=== PATIENT | female | born 1985 | race Caucasian/White ===

== ENCOUNTER 2016-11-02 13:59 | Emergency (ER) | payer OTHER ==
--- NOTE | 2016-11-02 15:12 | XRAY Preliminary Report ---
Exam: XR Foot 3 View LT IMPRESSION: No acute bony abnormality. [facility] SITE ID: [id number]
--- NOTE | 2016-11-02 15:15 | XRAY Report ---
EXAM: LEFT FOOT RADIOGRAPHY EXAM DATE: 11/02/2016 02:58 PM. CLINICAL HISTORY: Foot injury from a fall. Pain at top of foot. COMPARISON: None. TECHNIQUE: 3 views. FINDINGS: Bones: Normal. No fractures or bone lesions. Joints: Normal. No subluxations. Soft Tissues: Dorsal soft tissue swelling noted. IMPRESSION: No acute bony abnormality. [facility] Referring Provider Line: [phone] SITE ID: [id number]
--- NOTE | 2016-11-02 17:42 | ED Physician Documentation ---
History of Present Illness - Stated complaint Stated Complaint: LT FT INJURY - Chief complaint Chief Complaint: Ext Problem - Additonal information Additional information: hx from pt running up stairs and foot slipped off edge of step causing her to fall pain and sig swelling to midfoot no other injury Review of Systems : denies: Now EGA (denies) Musculoskeletal: reports: Pain with weight bearing PD PAST MEDICAL HISTORY - Past Medical History Past Medical History: No - Past Surgical History Past Surgical History: No - Present Medications Home Medications: Ambulatory Orders Medication Instructions Recorded Confirmed No Known Home Medications [No 11/02/16 11/02/16 Known Home Medications] - Allergies Allergies/Adverse Reactions: Allergies Allergy/AdvReac Type Severity Reaction Status Date / Time No Known Drug Allergies Allergy Verified 11/02/16 14:07 - Social History Does the pt smoke?: Yes Smoking Status: Current every day smoker Does the pt drink ETOH?: Yes Does the pt have substance abuse?: No PD ED PE NORMAL - Vitals Vital signs reviewed: Yes - Extremities Extremities: Other (L foot marked swelling and TTP to mid foot, mo 1st or 5th MT TTP, pain with any motion, MSV intact) Results - Vitals Vitals: Vital Signs - 24 hr 11/02/16 14:05 Temperature 37.2 C Heart Rate 108 H Respiratory 16 Rate Blood Pressure 124/82 H O2 Saturation 100 Oxygen O2 Source Room air - Rads (name of study) foot Radiology: See rad report (no fx, d/w rad ans slight widening but not definitive lis franc, consider MRI) Departure - Departure Disposition: 01 Home, Self Care Clinical Impression: Foot injury Qualifiers: Encounter type: initial encounter Laterality: left Qualified Code(s): S99.922A - Unspecified injury of left foot, initial encounter Condition: Good Instructions: Lisfranc Joint Injury About Follow-Up: [facility] [Provider Group] Comments: There is no fracture but I am concerned that you may have a significant ligamentous injury / disruption called a Lisfranc injury. This can be difficult to identify on plain films and you may need a MRI to determine if americo have this injury It i very important that you follow up with orthopedics in short order for further evaluation. Please call the clinic number I provided. In the mean time, wear the INOCENTE wrap to decrease the swelling, no weight bearing at all, motrin and tylenol for the pain Forms: Activity restrictions
[2016-11-02] MEDS ORDERED: IBUPROFEN 400 MG TABLET PO STA (17:46)
[2016-11-02] MEDS ORDERED: ACETAMINOPHEN 325 MG TABLET PO STA (17:46)
[2016-11-02] MEDS ORDERED: ACETAMINOPHEN 325 MG TABLET PO ONE (17:54)
[2016-11-02] MEDS ORDERED: IBUPROFEN 400 MG TABLET PO ONE (17:54)
[2016-11-02 17:55] VITALS: BP 113/72
== END 2016-11-02 18:02 | disposition home or self-care (01) ==
LOC: ED 13:59
DX: S99.922A Unspecified injury of left foot, initial encounter (principal); W10.9XXA Fall (on) (from) unspecified stairs and steps, initial encounter; Y93.02 Activity, running; F17.200 Nicotine dependence, unspecified, uncomplicated
CPT/HCPCS: 99283

== ENCOUNTER 2017-01-13 10:45 | Outpatient (CLI) | payer OTHER ==
[2017-01-13 11:10] LABS: BASOPHILS % (AUTO) 0.9 %; EOSINOPHILS # (AUTO) 0.1 10^3/uL (0.0-0.7); EOSINOPHILS % (AUTO) 1.9 %; HCT - HEMATOCRIT 43.5 % (37.0-47.0); HGB - HEMOGLOBIN 14.7 g/dL (12.0-16.0); LYMPHOCYTES # (AUTO) 1.3 10^3/uL (1.5-3.5); LYMPHOCYTES % (AUTO) 25.4 %; MEAN CORPUSCULAR HEMOGLOBIN 28.3 pg (27.0-31.0); MEAN CORPUSCULAR HGB CONC 33.9 g/dL (32.0-36.0); MEAN CORPUSCULAR VOLUME 83.6 fL (81.0-99.0); MEAN PLATELET VOLUME 8.9 fL (7.9-10.8); MONOCYTES # (AUTO) 0.3 10^3/uL (0.0-1.0); MONOCYTES % (AUTO) 5.6 %; NEUTROPHILS # (AUTO) 3.4 10^3/uL (1.5-6.6); NEUTROPHILS % (AUTO) 66.2 %; NUCLEATED RED BLOOD CELLS AUTO 0.1 /100WBC; RED BLOOD COUNT 5.21 10^6/uL (4.20-5.40); RED CELL DISTRIBUTION WIDTH 12.6 % (12.0-15.0); UNCORRECTED WHITE BLOOD COUNT 5.1 x10^3/uL; WHITE BLOOD COUNT 5.1 x10^3/uL (4.8-10.8)
[2017-01-13 11:31] LABS: HEMOGLOBIN A1C 0.57 g/dL
[2017-01-13 11:36] LABS: ALBUMIN/GLOBULIN RATIO 1.6 (1.0-2.2); BILIRUBIN,TOTAL 0.9 mg/dL (0.2-1.0); BUN - BLOOD UREA NITROGEN 11 mg/dL (6-20); CALCIUM 9.4 mg/dL (8.5-10.3); CARBON DIOXIDE - CO2 24 mmol/L (21-32); CHLORIDE 104 mmol/L (101-111); CHOL/HDL RATIO 2.2 (<4.4); CHOLESTEROL 141 mg/dL; CREATININE 0.6 mg/dL (0.4-1.0); GFR - MDRD 115 (>89); GLUCOSE 90 mg/dL (70-100); HDL CHOLESTEROL 65 mg/dL; POTASSIUM 3.7 mmol/L (3.5-5.0); SODIUM 138 mmol/L (135-145); TOTAL PROTEIN 7.5 g/dL (6.7-8.2); TRIGLYCERIDES 51 mg/dL; VLDL CHOLESTEROL 10 mg/dL
== END 2017-01-13 10:46 | disposition home or self-care (01) ==
LOC: LAB 10:45
PROVIDERS: ATTEND Registered Nurse
DX: R10.84 Generalized abdominal pain (principal); Z01.419 Encounter for gynecological examination (general) (routine) without abnormal findings
CPT/HCPCS: 36415; 80053; 80061; 83036; 84443; 85025

== ENCOUNTER 2017-01-21 08:36 | Outpatient (CLI) | payer OTHER ==
--- NOTE | 2017-01-21 10:50 | Ultrasound Report ---
ULTRASOUND ABDOMEN COMPLETE: 01/21/2017 COMPARISON: None. INDICATION: Generalized abdominal pain. TECHNIQUE: Sonographic evaluation of the abdomen is performed. FINDINGS: The liver and spleen appear normal in size, echogenicity, and contour. Portal venous flow is directed toward the liver. There is no ascites. The pancreas appears prominent, which is favored to be due to a paucity of intraabdominal fat. The gallbladder appears normal without wall thickening or adjacent fluid. The common duct measures 4 mm. There are multiple right renal stones that measure up to 1.4 cm. No evidence of urologic obstruction. The left kidney appears normal. Right kidney 12.2 cm. Left kidney 11.2 cm. Spleen 12 cm. IMPRESSION: 1. MULTIPLE NONOBSTRUCTING RIGHT RENAL STONES. 2. PROMINENT APPEARANCE OF THE PANCREAS IS FAVORED TO BE DUE TO A PAUCITY OF INTRAABDOMINAL FAT. JOB #: [id number] EXT JOB #: [id number] [email or web address]
== END 2017-01-21 08:37 | disposition home or self-care (01) ==
LOC: DI 08:36
PROVIDERS: ATTEND Registered Nurse
DX: N20.0 Calculus of kidney (principal)
CPT/HCPCS: 76700

== ENCOUNTER 2017-02-05 09:01 | Outpatient (CLI) | payer OTHER ==
[2017-02-05 09:40] LABS: ALBUMIN/GLOBULIN RATIO 1.6 (1.0-2.2); BILIRUBIN,TOTAL 0.4 mg/dL (0.2-1.0); CALCIUM 9.2 mg/dL (8.5-10.3); CREATININE 0.6 mg/dL (0.4-1.0); POTASSIUM 4.2 mmol/L (3.5-5.0); TOTAL PROTEIN 7.1 g/dL (6.7-8.2)
[2017-02-05 09:45] LABS: BILIRUBIN,URINE NEGATIVE (NEGATIVE)
[2017-02-05 09:55] LABS: WBC,URINE 0-3 /HPF (0-5)
== END 2017-02-05 09:02 | disposition home or self-care (01) ==
LOC: LAB 09:01
PROVIDERS: ATTEND Registered Nurse
DX: N20.0 Calculus of kidney (principal); K86.89 Other specified diseases of pancreas
CPT/HCPCS: 36415; 80053; 81001; 82150; 83690

== ENCOUNTER 2017-02-16 07:56 | Outpatient (CLI) | payer OTHER ==
[~2017-02-16 07:56] MED LIST: GADOBUTROL 7.5 MMOL/7.5 ML VIAL ONE
[2017-02-16] MEDS ORDERED: GADOBUTROL 7.5 MMOL/7.5 ML VIAL IVP ONE (09:30)
[2017-02-16 10:30] LABS: AMYLASE 137 U/L (28-100); LIPASE 26 U/L (22-51)
--- NOTE | 2017-02-16 13:32 | MRI Report ---
EXAM: MR ABDOMEN WITH AND WITHOUT CONTRAST (MR PANCREAS AND MRCP) EXAM DATE: 02/16/2017 09:38 AM. CLINICAL HISTORY: OTHER SPECIFIED DISEASES OF PANCREAS. COMPARISON: None. TECHNIQUE: Multiplanar breath-hold T1, T2, and DWI sequences obtained through the pancreas and abdome n on an MR scanner. Dedicated 2D and 3D MRCP sequences obtained through the biliary and pancreatic du cts. Images obtained before and after administration of 5 mL Gadavist intravenous contrast. Multiphas e postcontrast sequences obtained through the pancreas. FINDINGS: Lung Bases: The lung bases are clear. Liver: The liver has normal size, morphology and signal. No evidence of mass. The intrahepatic ducts appear normal. CBD: The CBD appears normal and measures 4 mm in diameter. Gallbladder: The gallbladder is partially distended and appears normal with no wall thickening or sto ne. Pancreas: The pancreas appears normal with no mass. The pancreatic duct measures 2 mm in diameter and appears normal with no stone or stricture. Spleen: The spleen appears normal. Kidneys and Adrenals: The kidneys appear normal with no mass or hydronephrosis. There are no cysts in the kidneys. The adrenals appear normal. Bowel: The small bowel and colon appear normal with no inflammation or obstruction. Retroperitoneum: The retroperitoneal structures appear normal with no mass or lymphadenopathy. IMPRESSION: Normal MR of the pancreas and abdomen. [facility] Referring Provider Line: [phone] SITE ID: [id number]
== END 2017-02-16 07:57 | disposition home or self-care (01) ==
LOC: DI 07:56
PROVIDERS: ATTEND Registered Nurse
DX: K86.89 Other specified diseases of pancreas (principal); R73.01 Impaired fasting glucose
CPT/HCPCS: 36415; 74183; 82150; 82951; 83690; A9585

== ENCOUNTER 2018-05-05 11:34 | Emergency (ER) | payer OTHER ==
[2018-05-05 11:48] VITALS: BP 113/66
[2018-05-05] MEDS ORDERED: DEXAMETHASONE 10 MG/ML VIAL PO STA (12:14)
--- NOTE | 2018-05-05 12:18 | ED Physician Documentation ---
PD HPI HEENT - Stated complaint Stated Complaint: SORE THROAT - Chief complaint Chief Complaint: Heent - History obtained from History obtained from: Patient - History of Present Illness Timing - onset: Yesterday Timing - duration: Days (2) Timing - details: Gradual onset, Still present Location: Throat Improves: Medication Worsens: Swalllowing Associated symptoms: Congestion, Rhinorrhea, Headache Similar symptoms before: Diagnosis (strep) Recently seen: Not recently seen - Additional information Additional information: 32-year-old female who does not usually gets sick is become sick with congestion and sore throat and she has lost her voice. There are several other people at work have been sick as well. She has not had fever and she has not had cough. Review of Systems Constitutional: denies: Fever Eyes: denies: Decreased vision Ears: denies: Ear pain Nose: reports: Rhinorrhea / runny nose, Congestion Throat: reports: Sore throat Cardiac: denies: Chest pain / pressure, Palpitations Respiratory: denies: Dyspnea, Cough GI: denies: Vomiting PD PAST MEDICAL HISTORY - Past Surgical History Past Surgical History: No - Present Medications Home Medications: Ambulatory Orders Medication Instructions Recorded Confirmed Azithromycin [Zithromax] 250 mg PO DAILY #6 tablet 05/05/18 busPIRone [Buspar] 0 mg 05/05/18 - Allergies Allergies/Adverse Reactions: Allergies Allergy/AdvReac Type Severity Reaction Status Date / Time No Known Drug Allergies Allergy Verified 05/05/18 11:48 - Social History Does the pt smoke?: Yes Smoking Status: Current every day smoker Does the pt drink ETOH?: Yes Does the pt have substance abuse?: No PD ED PE NORMAL - Vitals Vital signs reviewed: Yes (normal) - General General: Alert and oriented X 3, No acute distress, Well developed/nourished - HEENT HEENT: Atraumatic, PERRL, EOMI, Ears normal, Other (There is erythema without exudate to the tonsillar pillars bilaterally ) - Neck Neck: Supple, no meningeal sign, No bony TTP, Other (tender submandibular adenopathy ) - Cardiac Cardiac: RRR, No murmur - Respiratory Respiratory: No respiratory distress, Clear bilaterally - Abdomen Abdomen: Soft, Non tender - Back Back: No CVA TTP, No spinal TTP - Derm Derm: Normal color, Warm and dry, No rash - Extremities Extremities: No deformity, No edema - Neuro Neuro: Alert and oriented X 3, composing room supervisor 2-12 intact, No motor deficit, No sensory deficit, Normal speech Eye Opening: Spontaneous Motor: Obeys Commands Verbal: Oriented GCS Score: 15 - Psych Psych: Normal mood, Normal affect Results - Vitals Vitals: Vital Signs - 24 hr 05/05/18 11:42 Temperature 36.9 C Heart Rate 88 Respiratory 16 Rate Blood Pressure 113/66 O2 Saturation 99 Oxygen O2 Source Room air - Labs Labs: Laboratory Tests 05/05/18 12:10 Group A Strep Rapid Negative PD MEDICAL DECISION MAKING - ED course Complexity details: reviewed results, re-evaluated patient, d/w patient ED course: 32-year-old female with a sore throat has had strep previously with a negative rapid strep that grew out a different strain of strep. She is developed sore throat again. She is administered dexamethasone 10 mg orally. Departure - Departure Disposition: Home, Self Care Clinical Impression: Pharyngitis Qualifiers: Pharyngitis/tonsillitis etiology: unspecified etiology Qualified Code(s): J02.9 - Acute pharyngitis, unspecified Condition: Stable Instructions: ED Strep Pharyngitis Poss Follow-Up: Berry Blue, THIERRY, DIRECTOR FINANCIAL ANALYSIS [Provider Admit Priv/Credential] - Prescriptions: Azithromycin [Zithromax] 250 mg PO DAILY #6 tablet Forms: Activity restrictions
[2018-05-05] MEDS ORDERED: CHERRY SYRUP 10 ML UDC PO ONE (12:31)
== END 2018-05-05 13:00 | disposition home or self-care (01) ==
LOC: ED 11:34
DX: J02.9 Acute pharyngitis, unspecified (principal); F17.200 Nicotine dependence, unspecified, uncomplicated
CPT/HCPCS: 87070; 87430; 99283; A9270

== ENCOUNTER 2018-05-11 11:06 | Emergency (ER) | payer OTHER ==
--- NOTE | 2018-05-11 12:21 | ED Physician Documentation ---
PD HPI URI - Stated complaint Stated Complaint: SORE THROAT - Chief complaint Chief Complaint: Heent - History obtained from History obtained from: Patient - History of Present Illness Timing - onset: How many days ago (7) Timing duration: Days (7) Timing details: Abrupt onset, Still present (improved moderately on zpack and says was the best improved the day or two after ED visit, so may have been the steroid dose.) Associated symptoms: Fever, Sore throat, Swollen nodes, Other (very anxious about not improved yet; last year of CA and she is very nervous about any illness now.). No: Ear pain, Dry cough Contributing factors: No: Sick contact Recently seen: Emergency Dept (6 days ago and Rx Zpack and got dose steroids in ER.) Review of Systems Constitutional: reports: Fever, Myalgias Ears: denies: Ear pain Nose: denies: Congestion Throat: reports: Sore throat Respiratory: denies: Cough GI: denies: Nausea, Vomiting, Diarrhea Skin: denies: Rash PD PAST MEDICAL HISTORY - Past Medical History Past Medical History: Yes Cardiovascular: None Respiratory: None Psych: Anxiety - Past Surgical History Past Surgical History: No - Present Medications Home Medications: Ambulatory Orders Medication Instructions Recorded Confirmed Azithromycin [Zithromax] 250 mg PO DAILY #6 tablet 05/05/18 busPIRone [Buspar] 0 mg 05/05/18 Cephalexin [Keflex] 500 mg PO TID #15 capsule 05/11/18 Dexamethasone [Decadron] 4 mg PO DAILY #5 tablet 05/11/18 diazePAM [Diazepam] 5 mg PO BID PRN #8 tablet 05/11/18 - Allergies Allergies/Adverse Reactions: Allergies Allergy/AdvReac Type Severity Reaction Status Date / Time No Known Drug Allergies Allergy Verified 05/11/18 11:17 - Social History Does the pt smoke?: Yes Smoking Status: Current every day smoker Does the pt drink ETOH?: Yes Does the pt have substance abuse?: No - Immunizations Immunizations are current?: Yes - POLST Patient has POLST: No PD ED PE NORMAL - Vitals Vital signs reviewed: Yes - General General: Alert and oriented X 3, Well developed/nourished - HEENT HEENT: Ears normal. No: Pharynx benign (some redness and swelling of tonsils without exudate. No peritonsillar swelling. Mild anterior tender adenopathy. ) - Neck Neck: Supple, no meningeal sign - Cardiac Cardiac: RRR, No murmur - Respiratory Respiratory: Clear bilaterally - Abdomen Abdomen: Soft, Non tender - Derm Derm: Normal color, Warm and dry Results - Vitals Vitals: Oxygen O2 Source Room air PD MEDICAL DECISION MAKING - ED course Complexity details: considered differential (has pharyngitis and cough that is persistent. last year of CA, so she gets worried about illness that it is a sign of serious process and is tearful about this not getting better. I tried to reassure her that likely strep and zpack or any abx is not 100% so will try another and should get better. ), d/w patient Departure - Departure Disposition: 01 Home, Self Care Clinical Impression: Anxiety about health Pharyngitis Qualifiers: Pharyngitis/tonsillitis etiology: unspecified etiology Qualified Code(s): J02.9 - Acute pharyngitis, unspecified Condition: Stable Record reviewed to determine appropriate education?: Yes Prescriptions: Cephalexin [Keflex] 500 mg PO TID #15 capsule Dexamethasone [Decadron] 4 mg PO DAILY #5 tablet diazePAM [Diazepam] 5 mg PO BID PRN #8 tablet PRN Reason: Anxiety Comments: Take the cephalexin as prescribed for the next 5 days for the clearing the rest of the infection. Decadron daily for 5 days for the inflammation. Continue usual medications. Add diazepam if needed for stress and anxiety and to help with sleep in the short-term. Recheck if not better over the next 3-5 days. Discharge Date/Time: 05/11/18 13:15
[2018-05-11] MEDS ORDERED: cephALEXin 250 MG CAPSULE PO STA (12:39)
[2018-05-11] MEDS ORDERED: DEXAMETHASONE 10 MG/ML VIAL PO STA (12:39)
[2018-05-11] MEDS ORDERED: ACETAMINOPHEN 325 MG TABLET PO STA (12:39)
[2018-05-11 13:16] VITALS: BP 124/88
== END 2018-05-11 13:15 | disposition home or self-care (01) ==
LOC: ED 11:06
DX: J02.9 Acute pharyngitis, unspecified (principal); F41.8 Other specified anxiety disorders; F17.200 Nicotine dependence, unspecified, uncomplicated
CPT/HCPCS: 99283; A9270

== ENCOUNTER 2018-06-08 18:05 | Outpatient (CLI) | payer OTHER ==
--- NOTE | 2018-06-09 00:59 | Ultrasound Report ---
Reason: THROAT PAIN Procedure Date: 06/08/2018 Accession Number: [id number] / [id number] Procedure: US - Head or Neck Soft Tissue CPT Code: FULL RESULT: EXAM: THYROID ULTRASOUND EXAM DATE: 06/08/2018 06:30 PM. CLINICAL HISTORY: THROAT PAIN. COMPARISON: None. TECHNIQUE: Real time sonographic imaging of the thyroid was performed by the deep sea diver. Multiple union contract representative static images were saved for review. FINDINGS: THYROID GLAND: Right Lobe: 5.4 x 1.9 x 1.6 cm, volume 9 cc. Normal background echotexture. Right Lobe Nodules: 2 mm cysts. Left Lobe: 5.2 x 1.5 x 1.3 cm, volume 5 cc. Normal background echotexture. Left Lobe Nodules: None. Isthmus: 0.3 cm AP. Isthmic Nodules: None. LYMPH NODES: No adenopathy demonstrated in the central or lateral compartment. OTHER: None. IMPRESSION: 2 mm right thyroid cysts. No cervical lymphadenopathy. Management recommendations are based on 2015 [place] [employer] Management Guidelines for Adult Patients with Thyroid Nodules and Differentiated Thyroid Cancer. [facility]
== END 2018-06-08 18:06 | disposition home or self-care (01) ==
LOC: DI 18:05
PROVIDERS: ATTEND Internal Medicine
DX: E04.1 Nontoxic single thyroid nodule (principal)
CPT/HCPCS: 76536

== ENCOUNTER 2018-07-02 12:30 | Outpatient (CLI) | payer OTHER ==
--- NOTE | 2018-07-03 22:46 | Ultrasound Report ---
Reason: PELVIC PAIN,ACUTE Procedure Date: 07/02/2018 Accession Number: [id number] / [id number] Procedure: US - Pelvic w/Transvaginal CPT Code: FULL RESULT: EXAM: PELVIC ULTRASOUND EXAM DATE: 07/02/2018 01:57 PM. CLINICAL HISTORY: PELVIC PAIN,ACUTE. COMPARISON: None. TECHNIQUE: Realtime transabdominal pelvic scan performed to identify the uterus and adnexa and as an overview of other pelvic structures, followed by transvaginal scan to provide greater detail of the uterus and adnexa, with static image documentation. FINDINGS: Uterus: 8.7 x 4.3 x 4.8 cm, volume 93.9 cc. Anteverted position. Normal overall size and echotexture. Masses: None. Endometrium: 5 mm. No focal endometrial abnormalities. Cervix: Small nabothian cyst. Right Ovary: 4.2 x 2.2 x 2.1 cm, volume 10.1 cc. Normal echotexture and blood flow. Simple appearing 2 cm cyst. Left Ovary: 3.2 x 1.4 x 1.9 cm, volume 4.4 cc. Normal echotexture and blood flow. Free Fluid: None. Other: None. IMPRESSION: No acute sonographic abnormalities. [facility]
== END 2018-07-02 12:31 | disposition home or self-care (01) ==
LOC: DI 12:30
PROVIDERS: ATTEND Registered Nurse
DX: R10.2 Pelvic and perineal pain (principal)
CPT/HCPCS: 76830; 76856

== ENCOUNTER 2020-09-09 18:49 | Emergency (ER) | payer BC, OTHER ==
[2020-09-09] MEDS ORDERED: diazePAM 5 MG TABLET PO STA (19:02)
--- NOTE | 2020-09-09 19:03 | ED Physician Documentation ---
PD HPI MHE - Stated complaint Stated Complaint: ANXIETY - History obtained from History obtained from: Patient (35-year-old woman with chronic anxiety was diagnosed with Covid a week ago and now her anxiety is much worse. She is not able to sleep. She has had good luck with Valium in the past for this. No SI/HI) Review of Systems Constitutional: denies: Fever, Chills Eyes: reports: Reviewed and negative Ears: reports: Reviewed and negative PD PAST MEDICAL HISTORY - Past Medical History Cardiovascular: None Respiratory: None Psych: Anxiety - Past Surgical History Past Surgical History: No - Present Medications Home Medications: Ambulatory Orders Medication Instructions Recorded Confirmed Azithromycin [Zithromax] 250 mg PO DAILY #6 tablet 05/05/18 busPIRone [Buspar] 0 mg 05/05/18 cephALEXin [Keflex] 500 mg PO TID #15 capsule 05/11/18 dexAMETHasone [Decadron] 4 mg PO DAILY #5 tablet 05/11/18 diazePAM [Diazepam] 5 mg PO BID PRN #8 tablet 05/11/18 diazePAM [Valium] 5 - 10 mg PO TID PRN #15 tablet 09/09/20 - Allergies Allergies/Adverse Reactions: Allergies Allergy/AdvReac Type Severity Reaction Status Date / Time No Known Drug Allergies Allergy Verified 05/11/18 11:17 - Social History Does the pt smoke?: Yes Smoking Status: Current every day smoker Does the pt drink ETOH?: Yes Does the pt have substance abuse?: No - Immunizations Immunizations are current?: Yes - POLST Patient has POLST: No PD ED PE NORMAL - Vitals Vital signs reviewed: Yes - General General: Alert and oriented X 3, No acute distress (Intermittently tearful) - Respiratory Respiratory: No respiratory distress, Clear bilaterally - Abdomen Abdomen: Non tender - Neuro Neuro: Alert and oriented X 3, Normal speech Results - Vitals Vitals: Oxygen O2 Source Room air Departure - Departure Disposition: Home, Self Care Clinical Impression: Anxiety about health Condition: Good Record reviewed to determine appropriate education?: Yes Instructions: ED Panic Attack Prescriptions: diazePAM [Valium] 5 - 10 mg PO TID PRN #15 tablet PRN Reason: Anxiety Comments: I am prescribing a short course of anxiety medication for you. These are potentially dangerous and addictive medications that should be used carefully. Do not drink or drive while taking these medications. If you received narcotic or sedating medications while in the emergency department, do not drive for 24 hours. Store this medication in a safe, secure place and out of reach of children. It is a violation of federal law to give or sell this medication to another person or to use in a manner other than prescribed. The ED will not refill narcotic prescriptions, including prescriptions lost or stolen. To dispose of unwanted medications: 1. [facility] at [address] in [place] has a medication drop box. They accept prescription medications (in pill form) Wednesday through Wednesday 9:00 a.m. to 5:00 p.m. 2. [facility] accepts prescription medications (in pill form only) for disposal year round. Call for more information. 3. Contact the [facility] for the next [facility] sponsored prescription drug collection event. , [phone], or [phone]; Note that many narcotic pain relievers also contain Tylenol/acetaminophen. Please ensure that your total dose of acetaminophen from all sources does not exceed 3 g (3000 mg) per day.
[2020-09-09 19:40] VITALS: BP 114/76
== END 2020-09-09 19:38 | disposition home or self-care (01) ==
LOC: ED 18:49
DX: F41.9 Anxiety disorder, unspecified (principal); F17.200 Nicotine dependence, unspecified, uncomplicated
CPT/HCPCS: 99282; 99283; A9270

== ENCOUNTER 2020-09-19 17:06 | Emergency (ER) | payer BC ==
[2020-09-19 17:39] LABS: BASOPHILS % (AUTO) 0.4 %; EOSINOPHILS # (AUTO) 0.1 10^3/uL (0.0-0.7); EOSINOPHILS % (AUTO) 1.1 %; HCT - HEMATOCRIT 44.5 % (37.0-47.0); HGB - HEMOGLOBIN 14.9 g/dL (12.0-16.0); LYMPHOCYTES # (AUTO) 1.5 10^3/uL (1.5-3.5); LYMPHOCYTES % (AUTO) 17.7 %; MEAN CORPUSCULAR HEMOGLOBIN 27.2 pg (27.0-31.0); MEAN CORPUSCULAR HGB CONC 33.5 g/dL (32.0-36.0); MEAN CORPUSCULAR VOLUME 81.4 fL (81.0-99.0); MEAN PLATELET VOLUME 10.4 fL (7.9-10.8); MONOCYTES # (AUTO) 0.5 10^3/uL (0.0-1.0); MONOCYTES % (AUTO) 5.4 %; NEUTROPHILS # (AUTO) 6.2 10^3/uL (1.5-6.6); PLT - PLATELET COUNT 331 10^3/uL (130-450); RED BLOOD COUNT 5.47 10^6/uL (4.20-5.40); RED CELL DISTRIBUTION WIDTH 11.9 % (12.0-15.0); WHITE BLOOD COUNT 8.3 x10^3/uL (4.8-10.8)
[2020-09-19] MEDS ORDERED: ONDANSETRON ODT 4 MG TABLET TL STA (17:49)
[2020-09-19] MEDS ORDERED: LORazepam 1 MG TABLET PO STA (17:49)
--- NOTE | 2020-09-19 17:55 | ED Physician Documentation ---
History of Present Illness - Stated complaint Stated Complaint: WEAKNESS,IRREGULAR HR - Chief complaint Chief Complaint: Cardiac - Additonal information Additional information: 35-year-old female presents the emergency department for evaluation of palpitations. She reports a longstanding history of anxiety. She had recently developed COVID-19 and was off of her paroxetine for a while. Was actually seen in this ER rather recently and given a short course of diazepam. She did see her primary care provider in follow-up just a few days ago and was restarted on the paroxetine and given a rescue med of clonazepam for her anxiety. This morning she felt heavier than normal palpitations felt quite uneasy uncomfortable and began to have a panic attack therefore she presents to the emergency department. She reports that 3 years ago her of cancer and that has triggered her anxiety. She has tried talk therapy but her therapist has advised EMDR as she is often hesitant to open up with verbal therapy. She denies chest pain. She states that her anxiety is making her nauseated weak and unwilling to eat. Review of Systems Constitutional: denies: Fever, Chills Eyes: reports: Reviewed and negative Ears: reports: Reviewed and negative Throat: reports: Reviewed and negative Cardiac: reports: Reviewed and negative Respiratory: reports: Reviewed and negative GI: reports: Nausea. denies: Vomiting : reports: Reviewed and negative Skin: denies: Rash, Lesions Musculoskeletal: denies: Neck pain, Back pain Neurologic: reports: Generalized weakness Psychiatric: reports: Anxiety. denies: Suicidal, Homicidal PD PAST MEDICAL HISTORY - Past Medical History Past Medical History: Yes Cardiovascular: None Respiratory: None Psych: Anxiety - Past Surgical History Past Surgical History: No - Present Medications Home Medications: Ambulatory Orders Medication Instructions Recorded Confirmed Ondansetron Odt [Zofran] 4 mg TL Q6H PRN #10 tablet 09/19/20 PARoxetine HCl [Paxil Cr] 12.5 mg PO DAILY PM 09/19/20 09/19/20 clonazePAM [Clonazepam] 0.25 mg PO Q12H PRN 09/19/20 09/19/20 - Allergies Allergies/Adverse Reactions: Allergies Allergy/AdvReac Type Severity Reaction Status Date / Time No Known Drug Allergies Allergy Verified 09/19/20 17:13 - Social History Does the pt smoke?: Yes Smoking Status: Current every day smoker Does the pt drink ETOH?: Yes Does the pt have substance abuse?: No - Immunizations Immunizations are current?: Yes - POLST Patient has POLST: No PD ED PE EXPANDED - General General: Alert, Anxious (Crying, tearful) - Cardiac Cardiac: Regular Rate, Regular Rhythm, Radial strong equal, Pedal strong equal, Cap refill < 2 sec - Respiratory Respiratory: Clear to ausultation tom. No: Distress, Labored - Abdomen Abdomen: Normal Bowel sounds. No: Tender to palpation - Neuro Neuro: Alert and Oriented X 3, CNII-XII intact - GCS Eye Opening: Spontaneous Motor: Obeys Commands Verbal: Oriented Total: 15 - Psych Psych: Tearful, Anxious (Tearful anxious appearing female. Repeatedly says she sorry for being here. She just wants to make sure she is okay.) Results - Vitals Vitals: Vital Signs - 24 hr 09/19/20 17:13 Temperature 36.5 C Heart Rate 100 Respiratory 16 Rate Blood Pressure 127/78 O2 Saturation 99 Oxygen O2 Source Room air - EKG (time done) 1715 Rate: Rate (enter#) (99) Rhythm: NSR [place]: Normal Intervals: Normal [place] QRS: Normal Ischemia: Non specific changes Compare to prior EKG: Unchanged from prior EKG Computer interpretation: Agree with computer - Labs Labs: Laboratory Tests 09/19/20 09/19/20 09/19/20 17:33 17:33 17:33 WBC 8.3 RBC 5.47 H Hgb 14.9 Hct 44.5 MCV 81.4 MCH 27.2 MCHC 33.5 RDW 11.9 L Plt Count 331 MPV 10.4 Neut # (Auto) 6.2 Lymph # (Auto) 1.5 Fajardo # (Auto) 0.5 Eos # (Auto) 0.1 Baso # (Auto) 0.0 Absolute Nucleated RBC 0.00 Nucleated RBC % 0.0 Sodium 136 Potassium 3.7 Chloride 103 Carbon Dioxide 22 Anion Gap 11.0 BUN 10 Creatinine 0.6 Estimated GFR (MDRD) 112 Glucose 116 H Calcium 9.4 Magnesium 1.9 Total Bilirubin 1.2 H AST 18 ALT 29 Alkaline Phosphatase 59 Troponin I High Sens < 2.3 L Total Protein 7.4 Albumin 4.3 Globulin 3.1 Albumin/Globulin Ratio 1.4 Lipase 32 PD MEDICAL DECISION MAKING - ED course Complexity details: reviewed results, re-evaluated patient, d/w patient, d/w family ED course: This is a well-appearing 35-year-old female who presents to the emergency department with chief complaint of palpitations. This is in the setting of increasing anxiety and a panic attack this morning. She reports that for the last few years she has been having increased anxiety and concerns about her health after the of her from cancer. She was recently reinitiated on an SSRI and her doctor gave her rescue medication of clonazepam. This is 0.25 mg. She did take it at home but did not find relief thus she presented here to the ER. Screening EKG is nonischemic and labs are unrevealing. Patient was given some Zofran here in the emergency department for her nausea as well as 2 mg of Ativan. After a little bit of time of watchful waiting here in the emergency department she feels markedly better. She is pursuing alternative forms of therapy specifically EMDR to help manage her anxiety and depression and will remain on the SSRI. She has good contact with her primary care provider and I discussed that the dose of clonazepam that she is on may be too little to provide effective relief. She will discuss this with her primary. I am going to write a prescription for some Zofran which she feels was very helpful in addressing her nausea which is also a concern point of anxiety for her. Emergent return precautions were discussed for concerning symptoms Departure - Departure Disposition: 01 Home, Self Care Clinical Impression: Anxiety, Nausea Condition: Stable Record reviewed to determine appropriate education?: Yes Prescriptions: Ondansetron Odt [Zofran] 4 mg TL Q6H PRN #10 tablet PRN Reason: Nausea / Vomiting Comments: Erin you were seen today in the emergency department for palpitations and nausea. I suspect that the root of your symptoms is due to the anxiety and what appears to have been a panic attack. This is okay. I want to encourage you to continue to follow-up with therapy and EMDR. Please continue on the paroxetine. Your clonazepam dose may need to be adjusted for breakthrough panic. Your screening labs today were all essentially normal as well as your EKG. You are not having a heart attack and there are no problems with your heart. I am prescribing a limited amount of Zofran to help with your nausea. If at any point you find that your symptoms or not being well controlled, you have a return of the panic that does not isiah with the clonazepam or you feel unsafe in any way please return immediately to the ER.
[2020-09-19 18:03] LABS: ALBUMIN 4.3 g/dL (3.2-5.5); ALBUMIN/GLOBULIN RATIO 1.4 (1.0-2.2); BILIRUBIN,TOTAL 1.2 mg/dL (0.2-1.0); CALCIUM 9.4 mg/dL (8.5-10.3); CREATININE 0.6 mg/dL (0.4-1.0); MAGNESIUM 1.9 mg/dL (1.7-2.8); POTASSIUM 3.7 mmol/L (3.5-5.0); TOTAL PROTEIN 7.4 g/dL (6.7-8.2)
[2020-09-19 18:51] VITALS: BP 108/66
== END 2020-09-19 18:51 | disposition home or self-care (01) ==
LOC: ED 17:06
DX: F41.9 Anxiety disorder, unspecified (principal); R11.0 Nausea; F17.200 Nicotine dependence, unspecified, uncomplicated
CPT/HCPCS: 36415; 80053; 83690; 83735; 84484; 85025; 93005; 99283; 99284; J8499; Q0162

== ENCOUNTER 2020-09-21 05:46 | Emergency (ER) | payer BC ==
[2020-09-21] MEDS ORDERED: LORazepam 1 MG TABLET PO STA (06:26)
[2020-09-21] MEDS ORDERED: diphenhydrAMINE INJ 50 MG/ML VIAL IM STA (06:27)
--- NOTE | 2020-09-21 06:30 | ED Physician Documentation ---
History of Present Illness - Stated complaint Stated Complaint: WEAKNESS - Chief complaint Chief Complaint: MHE - History obtained from History obtained from: Patient, Family (significant other) - Additonal information Additional information: 35-year-old woman with history of anxiety, COVID-19 infection 1 month ago presents with nausea since that time escalating anxiety recently. Patient is currently coordinating with her primary doctor to get light desensitization therapy and treatment generalized anxiety in relation to the of her . She also was started on clonazepam with some improvement paroxetine as well last week. Patient states that she has been getting about 2 hours of sleep at night. Denies SI/HI/AVH. Review of Systems Ten Systems: 10 systems reviewed and negative GI: reports: Nausea, Diarrhea (chronic diarrhea since having covid. nonbloody). denies: Abdominal Pain : denies: Dysuria Musculoskeletal: denies: Back pain PD PAST MEDICAL HISTORY - Past Medical History Past Medical History: Yes Cardiovascular: None Respiratory: None Psych: Anxiety, Panic attacks - Past Surgical History Past Surgical History: No - Present Medications Home Medications: Ambulatory Orders Medication Instructions Recorded Confirmed Ondansetron Odt [Zofran] 4 mg TL Q6H PRN #10 tablet 09/19/20 PARoxetine HCl [Paxil Cr] 12.5 mg PO DAILY PM 09/19/20 09/19/20 clonazePAM [Clonazepam] 0.25 mg PO Q12H PRN 09/19/20 09/19/20 LORazepam [Ativan] 0.5 mg PO Q6H PRN #10 tablet 09/21/20 - Allergies Allergies/Adverse Reactions: Allergies Allergy/AdvReac Type Severity Reaction Status Date / Time No Known Drug Allergies Allergy Verified 09/21/20 06:05 - Social History Does the pt smoke?: Yes Smoking Status: Current every day smoker Does the pt drink ETOH?: Yes Does the pt have substance abuse?: No - Immunizations Immunizations are current?: Yes - POLST Patient has POLST: No PD ED PE NORMAL - Vitals Vital signs reviewed: Yes - General General: Alert and oriented X 3, No acute distress, Well developed/nourished - HEENT HEENT: Atraumatic, PERRL, EOMI - Neck Neck: Supple, no meningeal sign - Cardiac Cardiac: RRR - Respiratory Respiratory: No respiratory distress, Clear bilaterally - Abdomen Abdomen: Non tender, Non distended - Back Back: No CVA TTP - Derm Derm: Normal color, Warm and dry - Neuro Neuro: Alert and oriented X 3 - Psych Psych: Other (anxious appearing but calmed after history and physical) Results - Vitals Vitals: Vital Signs - 24 hr 09/21/20 09/21/20 06:01 06:04 Temperature 36.1 C L Heart Rate 76 72 Respiratory 18 18 Rate Blood Pressure 106/68 106/68 O2 Saturation 100 100 Oxygen O2 Source Room air PD MEDICAL DECISION MAKING - ED course ED course: 35-year-old woman presents with insomnia, nausea, and anxiety worsening over the past week. She states that she sleeps only about 2 hours a night, waking intermittently. She does have good follow-up with her primary medic in the grocery who is coordinating her mental health care and has an appointment on Wednesday for lab work prior to a Wednesday appointment with her primary to coordinate light desensitization therapy in treatment of her anxiety. I advised her that in the interim I can give her medications for short-term relief but that she should keep her appointment and take her medicines as prescribed. Patient is agreeable. Return precautions given. Departure - Departure Disposition: Home, Self Care Clinical Impression: Anxiety, Nausea Condition: Good Instructions: ED Panic Attack Prescriptions: LORazepam [Ativan] 0.5 mg PO Q6H PRN #10 tablet PRN Reason: Anxiety Comments: You are seen in the emergency department for anxiety and nausea. Please follow- up with your primary doctor on Wednesday and follow-up for your blood work on Wednesday. Sending well wishes your way. Hope that you feel better!
[2020-09-21 06:38] VITALS: BP 110/61
== END 2020-09-21 06:37 | disposition home or self-care (01) ==
LOC: ED 05:46
DX: F41.9 Anxiety disorder, unspecified (principal); R11.0 Nausea; G47.00 Insomnia, unspecified; F17.200 Nicotine dependence, unspecified, uncomplicated
CPT/HCPCS: 96372; 99283; 99284; J1200; J8499

== ENCOUNTER 2021-12-22 08:30 | Inpatient (IN) | payer BC ==
[2021-12-22] MEDS ORDERED: OXYTOCIN 10 UNIT/ML VIAL IM PRN (08:50)
[2021-12-22] MEDS ORDERED: CARBOPROST TROMETHAMINE 250 MCG/ML AMP IM PRN (08:50)
[2021-12-22] MEDS ORDERED: fentaNYL 100 MCG/2 ML VIAL IVP PRN (08:50)
[2021-12-22] MEDS ORDERED: miSOPROStoL 200 MCG TABLET PR PRN (08:50)
[2021-12-22] MEDS ORDERED: TRANEXAMIC ACID IN NACL 1,000 MG/100 ML BAG IV PRN (08:50)
[2021-12-22] MEDS ORDERED: AMPICILLIN 2 GM in SODIUM CHLORIDE 0.9% MINIBAG 100 ML IV ONE (08:50)
[2021-12-22] MEDS ORDERED: LABETALOL 20 MG/4 ML SYRINGE IVP PRN ×3 (08:50)
[2021-12-22] MEDS ORDERED: miSOPROStoL 200 MCG TABLET BC PRN (08:50)
[2021-12-22] MEDS ORDERED: OXYTOCIN/SODIUM CHLORIDE 500 ML IV PRN (08:50)
[2021-12-22] MEDS ORDERED: hydrALAZINE INJ 20 MG/ML VIAL IVP PRN ×2 (08:50)
[2021-12-22] MEDS ORDERED: NIFEdipine 10 MG CAPSULE PO PRN (08:50)
[2021-12-22] MEDS ORDERED: TERBUTALINE 1 MG/ML VIAL SUBQ PRN (08:50)
[2021-12-22] MEDS ORDERED: SODIUM CHLORIDE FLUSH 0.9% 10 ML SYRINGE IVP PRN (08:50)
[2021-12-22] MEDS ORDERED: METHYLERGONOVINE 0.2 MG/ML VIAL IM PRN (08:50)
[2021-12-22] MEDS ORDERED: lidocaine 1% 20 ML MDV ID PRN (08:50)
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
[2021-12-22] MEDS ORDERED: AMPICILLIN 2 GM VIAL IV ONE (09:10)
[2021-12-22] MEDS ORDERED: LACTATED RINGERS 1,000 ML ONE (09:11)
[2021-12-22] MEDS: LACTATED RINGERS 1,000 ML IV SCH (09:15)
[2021-12-22 09:24] LABS: BASOPHILS % (AUTO) 0.3 %; EOSINOPHILS # (AUTO) 0.1 10^3/uL (0.0-0.7); EOSINOPHILS % (AUTO) 1.3 %; HCT - HEMATOCRIT 37.8 % (37.0-47.0); HGB - HEMOGLOBIN 12.3 g/dL (12.0-16.0); LYMPHOCYTES # (AUTO) 1.4 10^3/uL (1.5-3.5); LYMPHOCYTES % (AUTO) 14.1 %; MEAN CORPUSCULAR HEMOGLOBIN 25.3 pg (27.0-31.0); MEAN CORPUSCULAR HGB CONC 32.5 g/dL (32.0-36.0); MEAN CORPUSCULAR VOLUME 77.6 fL (81.0-99.0); MEAN PLATELET VOLUME 12.5 fL (7.9-10.8); MONOCYTES # (AUTO) 0.6 10^3/uL (0.0-1.0); MONOCYTES % (AUTO) 6.5 %; NEUTROPHILS # (AUTO) 7.5 10^3/uL (1.5-6.6); NEUTROPHILS % (AUTO) 77.2 %; PLT - PLATELET COUNT 185 10^3/uL (130-450); RED BLOOD COUNT 4.87 10^6/uL (4.20-5.40); RED CELL DISTRIBUTION WIDTH 13.3 % (12.0-15.0); WHITE BLOOD COUNT 9.7 x10^3/uL (4.8-10.8)
[2021-12-22] MEDS ORDERED: AMPICILLIN 1 GM in SODIUM CHLORIDE 0.9% MINIBAG 100 ML IV SCH (13:00)
[2021-12-22] MEDS ORDERED: WITCH HAZEL/GLYCERIN 1 PAD TOP PRN (14:38)
[2021-12-22] MEDS ORDERED: HYDROCORTISONE 1% CREAM 28 GM TUBE PR PRN (14:38)
--- NOTE | 2021-12-22 14:45 | DELIVERY NOTE ---
Delivery Note - Labor Labor: positive: Spontaneous - Delivery Method Delivery Method: positive: Spontaneous vaginal delivery - Presentation Presentation: positive: Vertex, GELACIO - left occiput anterior - Nuchal Cord Nuchal Cord: positive: None - Amniotic Fluid Description Amniotic Fluid Description: positive: Clear - Episiotomy Type Episiotomy Type: positive: None - Laceration Laceration: positive: 1st degree, Perineal - Delivery Outcome Delivery Outcome: positive: Livebirth - [place]: positive: Placed in direct skin contact with mother, Stimulated, Warmed sex: positive: Female - Cord Cord: positive: 3 vessels - Placenta Placenta: positive: Intact, Spontaneous - Estimated Blood Loss Estimated Blood Loss (in cc): 200 - Post Delivery Events Post Delivery Events: positive: No post delivery events - Delivery Comments (Free Text/Narrative) Delivery Comments (Free Text/Narrative): Labor: This 36yo @ 40.3wks gestation by 9wk U/S presented on 12/22/2021 at approximately 0800 and was found to be in active labor with SVE 4/90/-2, vertex with intact membranes. FHR pattern demonstrated Category I pattern throughout labor. Normal labor course. SROM occurred at 1258 and was noted to be a large amount of lightly meconium stained amniotic fluid. Pt progressed to c/c/+1 at 1318. : Normal SVB of viable female on 12/22/2021 @ 1337. No nuchal cord. The was placed on maternal abdomen, stimulated, dried, and placed skin to skin. 's were 8/9 at 1 and 5 minutes respectively. Pitocin administered via IV for hemostasis. The umbilical cord was allowed to stop pulsating at which time it was doubly clamped by CNM and cut by FOB. 3VC. Cord blood was obtained. Fundal massage and gentle cord traction applied for active management of the third stage. Placenta delivered spontaneously and intact at 1341. EBL 200mL. Fourth stage: Uterine fundus firm and there is no excessive bleeding. The perineum, vagina, and cervix were inspected and noted to have a minor 1st degree perineal laceration which was hemostatic and left unrepaired. initiated. Family bonding well. Both mother and baby were left in stable condition.
[2021-12-22] MEDS: IBUPROFEN 800 MG TABLET PO SCH ×2 (15:30→21:43)
[2021-12-22] MEDS: ACETAMINOPHEN 500 MG TABLET PO SCH (15:31)
[2021-12-22] MEDS: SODIUM CHLORIDE FLUSH 0.9% 10 ML SYRINGE IVP SCH (15:50)
[2021-12-22] MEDS ORDERED: RHO(D) IMMUNE GLOBULIN 300 MCG SYRINGE IM ONE (18:10)
[2021-12-22] MEDS: DOCUSATE SODIUM 100 MG CAPSULE PO SCH (21:42)
[2021-12-23] MEDS: ACETAMINOPHEN 500 MG TABLET PO SCH ×2 (00:41→08:54)
[2021-12-23] MEDS: IBUPROFEN 800 MG TABLET PO SCH ×2 (04:42→10:59)
[2021-12-23] MEDS: LACTATED RINGERS 1,000 ML IV SCH (05:32)
[2021-12-23] MEDS: SODIUM CHLORIDE FLUSH 0.9% 10 ML SYRINGE IVP SCH (05:32)
[2021-12-23] MEDS: DOCUSATE SODIUM 100 MG CAPSULE PO SCH (08:54)
[2021-12-23] MEDS ORDERED: RHO(D) IMMUNE GLOBULIN 300 MCG SYRINGE IM ONE (11:00)
--- NOTE | 2021-12-23 11:36 | Discharge Plan ---
Discharge Plan Problem Reviewed?: Yes Disposition: Home, Self Care Condition: Good Diet: Regular Activity Restrictions: No Restrictions Shower Restrictions: No Driving Restrictions: No Weight Bearing: Full Weight Instruction Topics: Vaginal After No Smoking: If you smoke, Please STOP! Call for help. Follow-up with: Azra Fonseca CNM, ARNP [Provider Admit Priv/Credential] -
--- NOTE | 2021-12-23 11:40 | DISCHARGE SUMMARY ---
Discharge Summary Condition at Discharge: Good Discharge Disposition: 01 Home, Self Care - HOSPITAL COURSE Hospital Course: Date of Admission: 12/22/2021 Date of Discharge: 12/23/2021 Diagnosis on Admission: 1. 36yo @ 40.3 wks gestation by 9wk U/S 2. Active labor 3. Rh negative 4. GBS positive 5. FHR Category I Diagnosis on Discharge: 1. 36yo PPD#1 s/p TSVD viable female infant 2. 3. Normal recovery 4. S/p Rhogam injection Brief History: She is a patient of [facility] who presented on 12/22/2021 in active labor. Cervix was 4/90/-2, midposition and vertex with intact membranes. She was admitted for expectant management and was noted to be GBS positive. She was adequately treated with ampicillin for GBS prophylaxis per protocol. She spontaneously progressed to deliver a viable female on 12/22/2021 @ 1337. Apgars were 8/9 at 1 and 5 minutes respectively. She was noted to have a 1st degree perineal laceration which was hemostatic and left unrepaired. EBL 200mL. She has been doing well in her course. She is ambulating and tolerating a regular diet. She urinating without difficulty and her lochia is no rmal. Her pain is well controlled with oral medications. She is bonding well with her baby and is without difficulty. She received Rhogam per protocol for Rh negative status with Rh positive . She was given instructions to continue taking her vitamin while and to continue taking ibuprofen and tylenol over the counter as needed for pain management. She intends to follow up with myself at [facility] in 1 week or sooner if needed. She has been given precautions to call if she has any worsening fevers, chills, abdominal pain, increased vaginal bleeding or foul smelling vaginal discharge. Physical exam: Normocephalic, atraumatic. Heart RRR w/o M/G/R, lungs CTAB, abdomen soft and nontender with fundus firm at U. Perineum intact, light lochia rubra, bilateral LE's trace edema. Mood is good. - ALLERGIES Allergies/Adverse Reactions: Allergies Allergy/AdvReac Type Severity Reaction Status Date / Time No Known Drug Allergies Allergy Verified 09/21/20 06:05 - MEDICATIONS Home Medications: Ambulatory Orders Medication Instructions Recorded Confirmed Ondansetron Odt [Zofran] 4 mg TL Q6H PRN #10 tablet 09/19/20 PARoxetine HCl [Paxil Cr] 12.5 mg PO DAILY PM 09/19/20 09/19/20 clonazePAM [Clonazepam] 0.25 mg PO Q12H PRN 09/19/20 09/19/20 LORazepam [Ativan] 0.5 mg PO Q6H PRN #10 tablet 09/21/20 - LABS Result Diagrams: 12/22/21 09:05
[2021-12-23 12:14] VITALS: BP 124/73
--- NOTE | 2021-12-23 16:19 | Labor Flowsheet ---
Labor Flowsheet Datetime Report Generated by CPN: 12/23/2021 16:19 Datetime: 12/23/2021 12:05 VITAL SIGNS NBP Sys/Tanya/Mean (mmHg): 124 : 73 : 85 Pulse: 77 Datetime: 12/23/2021 00:39 SpO2 (%): 100 Datetime: 12/22/2021 15:33 Temperature (C): 36.8 Datetime: 12/22/2021 13:58 Stage of : Recovery Datetime: 12/22/2021 13:45 LaborFlag: Labor Datetime: 12/22/2021 13:30 UTERINE ACTIVITY Monitor Mode: External Frequency (min): 2-3 Quality: Strong Duration (sec): 50-60 Pattern: Normal: <= 5 Contractions in 10 Minutes Resting Tone (Palpate): Relaxed ASSESSMENT A Monitor Mode: Telemetry FHR Baseline Rate : 130 Variability: Moderate 6-25 bpm Accelerations: None Decelerations: Early; Variable Category: Category II Datetime: 12/22/2021 13:18 VAGINAL EXAM Dilatation (cm): 10.0 Datetime: 12/22/2021 13:12 Medication Comments: nitrous Datetime: 12/22/2021 12:58 Membrane Status: Ruptured Membranes Rupture Method: Spontaneous Amniotic Fluid Color: Clear Amniotic Fluid Amount: Moderate Datetime: 12/22/2021 12:35 Effacement (%): 100 Exam by: Marian Datetime: 12/22/2021 12:32 COMMUNICATION Communication: Provider at Bedside Provider Notified (Name): Marian Datetime: 12/22/2021 11:35 MEDICATIONS Analgesics/Sedatives: Fentanyl (mcg) @ 25 Datetime: 12/22/2021 11:28 Station: -1 Datetime: 12/22/2021 11:00 PAIN Pain Scale: 9 Pain Presence: Intermittent Pain Type: Contraction Datetime: 12/22/2021 10:33 PATIENT CARE Patient Position/Activity: Walking Patient Care Comments: Pt alternating between sitting on the bed and walking during ctx Datetime: 12/22/2021 09:41 Monitor Interventions for FHR: Ultrasound Adjusted
== END 2021-12-23 15:45 | disposition home or self-care (01) | DRG 807 ==
LOC: WFO 08:30 → FBP 08:50
PROVIDERS: ADMIT Nurse Practitioner Obstetrics & Gynecology; ATTEND Nurse Practitioner Obstetrics & Gynecology
PROC: 10E0XZZ Delivery of Products of Conception, External Approach (ICD-10-PCS; principal; 2021-12-22)
DX: O99.824 Streptococcus B carrier state complicating childbirth (principal); Z37.0 Single live birth; O70.0 First degree perineal laceration during delivery; O77.0 Labor and delivery complicated by meconium in amniotic fluid; Z3A.40 40 weeks gestation of pregnancy; O26.893 Other specified pregnancy related conditions, third trimester; Z67.41 Type O blood, Rh negative
CPT/HCPCS: 83033; 85025; 86850; 86900; 86901; A9270; J7120; 99213